=== PATIENT | female | born 1965 | race Asian ===

== ENCOUNTER → 2017-10-08 | Outpatient (CLI) | payer BC | END | disposition home or self-care (01) | LOC: RAD 08:02 | DX: M19.011 Primary osteoarthritis, right shoulder (principal) | CPT/HCPCS: 73030; 73030-RT ==

== ENCOUNTER → 2017-11-24 | Outpatient (CLI) | payer BC ==
[2017-11-24 08:39] LABS: ADD MAN DIFF? NO
[2017-11-24 08:42] LABS: WHITE BLOOD COUNT 3.3 10^3/ul (4.8-10.8)
[2017-11-24 08:42] LABS: BASOPHILS % 0.3 % (0.0-2.0); EOSINOPHILS % 1.2 % (0.0-7.0); HEMATOCRIT 40.8 % (37.0-47.0); HEMOGLOBIN 13.6 g/dl (12.0-16.0); LYMPHOCYTES # 1.2 10^3/ul (0.8-2.9); LYMPHOCYTES % 36.6 % (15.0-51.0); MEAN CORPUSCULAR HGB CONC 33.3 g/dl (32.0-37.0); MEAN CORPUSCULAR VOLUME 92.9 fl (82.0-101.0); MEAN PLATELET VOLUME 10.4 fl (7.4-10.4); MONOCYTE # 0.2 10^3/ul (0.3-0.9); MONOCYTES % 6.8 % (0.0-11.0); NEUTROPHIL # 1.8 10^3/ul (1.6-7.5); NEUTROPHILS % 54.8 % (39.0-77.0); PLATELET COUNT 155 10^3/UL (140-415); RED BLOOD COUNT 4.39 10^6/ul (4.20-5.40); RED CELL DISTRIBUTION WIDTH 12.4 % (11.5-14.5)
[2017-11-24 08:53] LABS: HEMOGLOBIN A1C 5.7 % (0-5.9)
[2017-11-24 09:11] LABS: ALANINE AMINOTRANSFERASE 19 IU/L (13-69); ALBUMIN 4.4 g/dl (3.3-4.9); ALBUMIN/GLOBULIN RATIO 1.29; ALKALINE PHOSPHATASE 92 IU/L (42-121); ANION GAP 12 (8-16); ASPARTATE AMINO TRANSFERASE 26 IU/L (15-46); BILIRUBIN,INDIRECT 1.1 mg/dl (0-1.1); BILIRUBIN,TOTAL 1.1 mg/dl (0.2-1.3); BLOOD UREA NITROGEN 17 mg/dl (7-20); CALCIUM 9.9 mg/dl (8.4-10.2); CARBON DIOXIDE 28 mmol/L (21-31); CHLORIDE 107 mmol/L (97-110); CHOLESTEROL 211 mg/dl (100-200); CREATININE 0.77 mg/dl (0.44-1.00); GLUCOSE 84 mg/dl (70-220); HDL CHOLESTEROL 69 mg/dl (37-92); LDL CHOLESTEROL,CALCULATED 134 mg/dl; POTASSIUM 4.4 mmol/L (3.5-5.1); SODIUM 143 mmol/L (135-144); TOTAL PROTEIN 7.8 g/dl (6.1-8.1); TRIGLYCERIDES 42 mg/dl (0-149)
[2017-11-24 09:50] LABS: ERYTHROCYTE SEDIMENTATION RATE 24 mm/Hr (0-30)
[2017-11-24 12:16] LABS: T4 (THYROXINE) 9.4 ug/dl (5.5-11.0)
== END | disposition home or self-care (01) ==
LOC: LAB 08:22
DX: E78.5 Hyperlipidemia, unspecified (principal); E03.9 Hypothyroidism, unspecified; R73.03 Prediabetes
CPT/HCPCS: 80053; 80061; 83036; 84436; 84443; 85025; 85651